=== PATIENT | female | born 1925 | race Caucasian/White ===

== ENCOUNTER 2016-07-13 18:49 | Inpatient (IN) | payer MEDICARE, OTHER ==
[~2016-07-13] VITALS: Ht 160 cm; Wt 70.6 kg
[~2016-07-13 18:49] MED LIST: ASA325 MG PO; BENADRYL-DPS25 MG PO; BIOTENE MOIST44.3 ML PO; CARDIZEM CD240 M1 PO; CATAPRES-DPS0.1 MG PO; COMPAZINE DPS5 MG PO; DULCOLAX-DPS10 MG PR; DUONEB DPS3 ML IH; ELIQUIS2.5 MG PO; FLEET ENEMA133 ML PR; HYDROCODONE 5MG/5 MG PO; KLOR-CON M2020 ME1 PO; LASIX DPS20 MG PO; MAALOX DPS30 ML PO; MILK OF MAGNESI10 ML PO; MOI-STIR120 ML PO; NITROSTAT0.4 MG SL; POLYETHYLENE GL17 GM PO; ROBITUSSIN200 MG/10 PO; SENOKOT S1 TAB PO; SURFAK DPS240 MG PO; TUMS DPS500 MG PO; TYLENOL DPS325 MG PO; VITAMIN D1000 UNI1 PO; ZESTRIL DPS2.5 MG PO
--- NOTE | 2016-07-14 14:17 | CO ---
ADMIT: 07/13/2016 RM/LOC: 305 [facility] MR#: [id number] [address] [address] [place] [address] Consultation SEX: F AGE: 89 : 1925 DATE OF CONSULTATION: 07/14/2016 ATTENDING PHYSICIAN: Prieto George CONSULTING PHYSICIAN: Mary Borden APRN TIME IN: 0910 hours. TIME-OUT: 0945 hours. REASON FOR CONSULTATION: Supportive care consultation was requested by Dr. George for discussion of goals for care. HISTORY OF PRESENT ILLNESS: Rachna is a pleasant 89-year-old, female with history of severe vascular dementia as well as a history of CVA; chronic kidney disease, stage III; PVD; COPD; as well as heart failure. She currently lives at the [facility]. She was admitted on 07/13 due the fact that she was not acting like herself. Evaluation revealed a creatinine of 8.4, and potassium of 5.6 initially. Nephrology is scheduled to see the patient today. She does have a history of significant dysphagia and has followed a modified diet in the past. Speech Therapy is to evaluate her today. Due to her multiple complexities, supportive care consultation was requested to discuss goals for care. In terms of advanced directives, the patient does have a living will as well as healthcare [id number] both of which are on file. The patient's healthcare amdst-er-nggnaewt is her son, Jerel Barrios whose phone# . The patient's secondary healthcare [id number]-lukwunlh is Chester Barrios whose phone# [phone]. Currently, the patient is a do not resuscitate/do not intubate status. Symptomatically, the patient appears intermittently agitated. She is obviously demented. She is weak and debilitated. She does not appear to be in any pain or dyspnea at this time. PAST MEDICAL HISTORY: 1. Vascular dementia. 2. Hypertension. 3. Coronary artery disease. 4. Previous ischemic CVA. 5. Chronic kidney disease, stage III. 6. PVD. 7. COPD. 8. Congestive heart failure. 9. Hyperlipidemia. 10.Osteoarthritis. 11.Bilateral macular degeneration. ALLERGIES: SHE HAS NO KNOWN MEDICATION ALLERGIES. ADMIT: 07/13/2016 RM/LOC: 305 [facility] MR#: [id number] [address] [address] [place] [address] Consultation SEX: F AGE: 89 : 1925 SOCIAL HISTORY: She is from the [facility]. She has children. She does not use alcohol, tobacco, or illicit drugs. FAMILY HISTORY: Unable to obtain from the patient. FUNCTIONAL REVIEW: Prior to her hospital stay, she was living at the [facility]. She was wheelchair-dependent. She was requiring total assistance with ADLs. Her intake was reduced. Her palliative performance scale prior to admission was a 30%. Currently, she remains totally dependent for care. She is taking in minimal intake. She is sleepy. Her current palliative performance score is 20% to 30%. It does appear that she has had significant weight loss over the past few months. In review of our records, we have her weighing around 190 pounds back in February of 2016. Currently, she is weighing around 155 pounds. REVIEW OF SYSTEMS: A 10-point review of systems was attempted. However, due the patient's mentation, this was unable to be obtained. PHYSICAL EXAMINATION: GENERAL: The patient is examined in the bed. She occasionally would yell out. VITAL SIGNS: Temperature 98.2, pulse 82, respirations 18, blood pressure 184/96, oxygen 96% on 2 L per nasal cannula. HEENT: Head is normocephalic. Pupils are 3 mm. Oral mucosa dry with fair dentition. NECK: Supple. RESPIRATORY: Respirations are equal, nonlabored at rest. Lungs are diminished throughout. CARDIOVASCULAR: She is paced. No murmurs, rubs, or gallops. She does have 1+ generalized edema. GASTROINTESTINAL: Soft, nontender. Bowel sounds are positive. MUSCULOSKELETAL: Generalized weakness. No obvious joint deformities. INTEGUMENTARY: Skin turgor is fair. NEUROLOGIC: Disoriented x3. She will not follow commands consistently. PSYCHIATRIC: She is intermittently agitated and yelling out. DIAGNOSTIC DATA: Sodium 145, potassium 5.5, BUN 92, creatinine 8.2, total protein 6.6, albumin 3.3. WBC is 7.5, hemoglobin 10.1, hematocrit 31.7, and platelets are 163. IMPRESSION: 1. Physical debility. 2. Vascular dementia with a FAST score of at least 7A. 3. Fatigue. 4. Malaise. 5. Abnormal weight loss, weighing around 190 pounds in February of 2016, and weighing around 155 pounds now. 6. Acute kidney injury. ADMIT: 07/13/2016 RM/LOC: 305 [facility] MR#: [id number] [address] [place] [id number] [place] [address] Consultation SEX: F AGE: 89 : 1925 7. Chronic kidney disease, stage 3. 8. Hyperkalemia. 9. Heart failure. 10.Chronic obstructive pulmonary disease. 11.Peripheral vascular disease. 12.History of dysphagia with aspiration. 13.Palliative care. 14.The patient is a DNR/DNI. PLAN OF TREATMENT: 1. I was able to call the patient's healthcare rooox-bu-kzukldhi, son, Jerel via telephone. Obviously, the patient is unable to participate in medical decision making due to her dementia. We reviewed the patient's overall status and goals for the time ahead. The patient's son has been able to talk with Dr. George this morning and understands that hospice may be an option for his mother. He is very clear that he would not want to pursue dialysis for his mother. He reports that she has had ongoing decline since the fracture in February of 2016. He states that she has not been eating well, and that she is now wheelchair-dependent, and totally dependent for all ADLs. At this point, he is open to hospice care if Nephrology feels that this is appropriate. We did review the hospice philosophy and benefit in detail and he is agreeable to hospice at the [facility] pending Nephrology's recommendations. He is appreciative of supportive care consultation, agrees to ongoing discussions pending the patient's status. We would like to thank Dr. George for the invitation to participate in this patient's care. Total consultation time was 35 minutes from 0910 hours to 0945 hours with 15 minutes from 0915 hours to 0930 hours spent [id number] with the patient or on the phone with her son discussing goals for care and providing counseling and support. The plan of care was discussed with Dr. Franks as well as nursing. Mary Borden APRN/ mikael JOB #: [id number] CC: Prieto George, Attending Physician Prieto George, Family Physician
--- NOTE | 2016-07-15 10:51 | CO ---
ADMIT: 07/13/2016 RM/LOC: 305 [facility] MR#: [id number] [address] [address] [place] [address] Consultation SEX: F AGE: 89 : 1925 DATE OF CONSULTATION: 07/14/2016 ATTENDING PHYSICIAN: Prieto George CONSULTING PHYSICIAN: Dung Franks MD REASON FOR CONSULTATION: Acute kidney injury and hyperkalemia. HISTORY OF PRESENT ILLNESS: The patient is an 89-year-old female, who presents to the hospital with altered mental status. She has dementia at baseline and is a poor historian. She is unable to give me a clear history. She was admitted to the hospital in March and her creatinine at that time had ranged in the 1.7 to 2.0 range. I visited with her son Mr. Jerel Dickson over the phone and he tells me that she had been progressively declining since her hip surgery. Lately, she has been unable to maintain oral intake and has not been eating or drinking very much. She continues to have memory issues, and when I speak with her, she does not recall the events leading to the hospitalization. She does not know that she is in the hospital. She states that she has been having some nausea. Other than that, no other complaints. REVIEW OF SYSTEMS: Limited secondary to the patient's condition, but otherwise is negative in detail. PAST MEDICAL HISTORY: 1. Hypertension. 2. Coronary artery disease. 3. CVA. 4. CKD, stage 3. 5. COPD. 6. CHF. 7. Pacemaker placement. 8. Hyperlipidemia. 9. Macular degeneration. 10.Pulmonary embolism. SOCIAL HISTORY: Her son, Jerel Dickson is very involved in her care. She has no ongoing tobacco, alcohol, or recreational drug use. FAMILY HISTORY: She is unable to give any history. She is unable to tell me if any of her members have any chronic kidney disease. MEDICATIONS: Reviewed in the chart. ALLERGIES: NO KNOWN DRUG ALLERGIES. PHYSICAL EXAMINATION: VITAL SIGNS: Temperature 98.2 Fahrenheit, pulse 82, blood pressure 184/96. GENERAL: She is in bed and somewhat agitated. HEENT: Head is nontraumatic and normocephalic. Extraocular movements are intact. Extremely dry mucosa. ADMIT: 07/13/2016 RM/LOC: 305 [facility] MR#: [id number] [address] [address] [place] [address] Consultation SEX: F AGE: 89 : 1925 CHEST: Some right basilar crackles. CVS: Regular rhythm. S1 and S2. No rubs, murmurs, or gallops. ABDOMEN: Soft and nontender. EXTREMITIES: No edema. NEUROLOGIC: She is not oriented, but is able to move all her extremities. LABORATORY DATA: Reviewed. BMP with sodium 145, potassium 5.5, CO2 of 23, creatinine 8.2, it was 8.7 earlier this morning, albumin 3.3. Hemoglobin 10.1. Urinalysis with 1+ protein, trace blood, trace leukocyte esterase. Chest x-ray with some cardiomegaly. ASSESSMENT AND PLAN: 1. Acute kidney injury/chronic kidney disease stage 3-this is likely prerenal in etiology. 2. Azotemia secondary to acute kidney injury and volume depletion. 3. Hyperkalemia-in the setting of acute kidney injury. We have medically managed her potassium thus far and her potassium has improved. She is due to receive another dose of Kayexalate today. I discussed her case with her son over the phone. As noted above, she has had a huge decline in her functional status recently and has not been able to maintain her oral intake. I discussed with him that her acute kidney injury may improve somewhat with conservative measures but there is a high chance considering her current functional status that she may end up being volume depleted again. He is in agreement that dialysis is not indicated in her scenario and I completely agree with this. We also discussed hospice measures and he would like to have some more information about this and is open to discussions on this front. Thank you for this consultation. Please do not hesitate to contact with any questions. Dung Franks MD/ mikael JOB #: [id number] CC: Prieto George, Attending Physician Prieto George, Family Physician
[2016-07-16] MEDS ORDERED: DESYREL-DPS50 MG PO (12:56)
[2016-07-16] MEDS ORDERED: MOI-STIR120 ML PO (12:57)
[2016-07-16] MEDS ORDERED: APRESOLINE-DPS10 MG PO (12:58)
[2016-07-16] MEDS ORDERED: LACRI-LUBE3.5 GM OU (13:08)
[2016-07-16] MEDS ORDERED: TEARS NATURAL D15 ML OU (13:08)
[2016-07-16] MEDS ORDERED: ISOPTO ATROPINE15 ML SL (13:09)
[2016-07-16] MEDS ORDERED: MORPHINE2 MG/ML SQ (13:10)
[2016-07-16] MEDS ORDERED: ATIVAN2 MG/1 ML IV (13:11)
[2016-07-16] MEDS ORDERED: ZOFRAN DPS4 MG/2 ML IV (13:12)
--- NOTE | 2016-07-19 09:21 | ER ---
ADMIT: 07/13/2016 RM/LOC: 305 [facility] MR#: [id number] [address] [address] [place] [address] Emergency Room Report SEX: F AGE: 89 : 1925 DATE: 07/13/2016 TIME: 1849 hours. Please refer to my T-sheet for complete H and P. HISTORY OF PRESENT ILLNESS: Briefly, the patient is an 89-year-old, who came in with decreased mental status, confirmed the onset, a [facility] patient. She is DNR. Came in with episodes where they passed out just not acting herself. Very poor historian. I am unable to obtain very good history. PHYSICAL EXAMINATION: VITAL SIGNS: Blood pressure 160/74, pulse 71, respirations 16, temp 99.3, and sat 97% on 5 L. GENERAL: Disoriented to time and place. Slightly agitated, rambling. LUNGS: Clear. HEART: Regular. ABDOMEN: Soft. EMERGENCY DEPARTMENT COURSE: CT of the brain showed no acute changes. Chest x-ray revealed mild CHF. Cardiac enzymes are negative. Blood cultures x2 were sent. Lactate was 0.8. CBC was normal except hemoglobin 10.9. Chemistries normal except potassium 6.4 and creatinine 8.7. Troponin was negative. EKG was paced rhythm, rate 78. We did give the patient placed a David given amp of sodium bicarb, 10 mL of 10% calcium gluconate and amp of D50 and 10 units of insulin. We gave her 500 mL normal saline bolus. We did the whole sepsis protocol. I talked to Dr. George, who will admit her to the hospital. ASSESSMENT: 1. Acute renal failure. 2. Syncopal episode. 3. Dementia. 4. Hyperkalemia. 5. Do not intubate. Critical care time is 75 minutes. PLAN: Admit to Dr. George. Johnson Muhammad MD/ mikael JOB #: [id number] CC: Prieto George MD, Attending Physician Prieto George MD, Family Physician
--- NOTE | 2016-07-22 08:37 | DS ---
ADMIT: 07/13/2016 RM/LOC: 305 [facility] MR#: [id number] [address] [address] [place] [address] Discharge Summary SEX: F AGE: 89 : 1925 ADMISSION DATE: 07/13/2016 DISCHARGE DATE: 07/15/2016 ADMITTING DIAGNOSES: 1. Acute kidney injury superimposed on baseline stage 3 chronic kidney disease. 2. Hyperkalemia. 3. History of congestive heart failure. 4. Hypoxemia. 5. Hypertension. 6. Chronic obstructive pulmonary disease. 7. Advanced dementia. 8. Coronary artery disease. 9. Cerebrovascular disease. 10.Hyperlipidemia. 11.Prior pacemaker placement. 12.History of aspiration pneumonia. 13.Dysphagia. 14.History of bilateral pulmonary emboli March 2016. 15.History of left hip fracture February 2016. DISCHARGE DIAGNOSES: 1. Acute kidney injury superimposed on baseline stage 3 chronic kidney disease. 2. Hyperkalemia. 3. History of congestive heart failure. 4. Hypoxemia. 5. Hypertension. 6. Chronic obstructive pulmonary disease. 7. Advanced dementia. 8. Coronary artery disease. 9. Cerebrovascular disease. 10.Hyperlipidemia. 11.Prior pacemaker placement. 12.History of aspiration pneumonia. 13.Dysphagia. 14.History of bilateral pulmonary emboli March 2016. 15.History of left hip fracture February 2016. PROCEDURES: None. CONSULTATIONS: 1. Dung Franks MD-Nephrology, consulted on 07/14/2016. 2. Supportive Care consult done on 07/14/2016. HISTORY AND PHYSICAL EXAMINATION: Rachna is an 89-year-old, white female, city call patient, who normally resides at the [facility] here in [place]. She was sent to the [facility] Emergency Department late in the evening of 07/13/2016 with some mental status changes. ER workup showed ADMIT: 07/13/2016 RM/LOC: 305 [facility] MR#: [id number] [address] [address] [place] [address] Discharge Summary SEX: F AGE: 89 : 1925 her serum creatinine to be increased all the way up into the 7-8's from her baseline of 1.7-1.9. She was also markedly hyperkalemic with potassiums up in the 6's. She was subsequently admitted to the ICU and placed on telemetry, and efforts made at lowering her serum potassium with insulin, bicarb, glucose, and Kayexalate. HOSPITAL COURSE: The morning following admission, Rachna was evaluated both by myself and Dr. Franks. The thought was that ultimately if we were going to correct her renal problems, she would need to be on dialysis. Conversations were held not only with myself but also from Dr. Franks and with Supportive Care with Rachna's son, Jerel, who is her power of erisa attorney regarding his goals for ongoing care. Jerel notes that Joses functional status and cognition and overall health has generally declined since her hip fracture back in February, and the family does not wish for dialysis or further aggressive measures. It was their desire that she be placed on hospice at this time. As such, Social Work was consulted and [facility] As of the morning of 07/15/2016, the plan is to discharge her back to the [facility] for hospice care and comfort cares. DISCHARGE CONDITION: Poor. DISPOSITION: She will be discharged back to the [facility]. DISCHARGE MEDICATIONS: Please refer to her discharge MAR. Ultimately, her comfort care medications will be determined by her hospice agency that oversees her care at the [facility]. FOLLOWUP: I do not have any plan to follow up with Rachna at this time. Her management will be undertaken by the attending physician at the [facility]. Prieto George MD/ ty JOB #: [id number] CC: Prieto George MD, Attending Physician Prieto George MD, Family Physician
--- NOTE | 2016-07-22 08:37 | HP ---
ADMIT: 07/13/2016 RM/LOC: 305 [facility] MR#: [id number] [address] [address] [place] [address] History and Physical SEX: F AGE: 89 : 1925 DATE OF SERVICE: 07/14/2016 CHIEF COMPLAINT: 1. Mental status change. 2. Acute kidney injury. HISTORY OF PRESENT ILLNESS: Rachna is an 89-year-old, white female, city-call patient, who normally resides at the 's home here in [place] was sent to the [facility] Emergency Department when she was found to have some mental status changes on top of her already advanced dementia. Subsequent workup in the ER revealed her to be hyperkalemic and to have a significant increase in her serum creatinine from a baseline of around 1.[address] up into the 7s. Much of Rachna's past medical history is obtained from old records. There is no reliable historian with her at the time of my exam, and her advanced dementia limits her ability to provide any meaningful history. PAST MEDICAL HISTORY: 1. Remarkable for:. 2. Stage 3 chronic kidney disease with baseline serum creatinine around 1.7 to 1.9. 3. History of congestive heart failure. 4. Hypertension. 5. Chronic obstructive pulmonary disease. 6. Advanced dementia. 7. Coronary artery disease. 8. Cerebrovascular disease with prior ischemic stroke. 9. Hyperlipidemia. 10.Prior pacemaker placement. 11.History of aspiration pneumonitis and pneumonia during hospitalization from late February of 2016 into March of 2016. 12.History of bilateral pulmonary emboli, diagnosed in March of 2016. 13.History of left intertrochanteric hip fracture 02/2016. PAST SURGICAL HISTORY: 1. Prior pacemaker placement. 2. Left hip trochanteric femoral nailing, performed by Dr. Beltran in February of 2016. MEDICATIONS: Her outpatient medications include: 1. Biotene mouthwash. 2. MiraLax daily. 3. Diltiazem ER 240 mg b.i.d. 4. Vitamin D3, 2000 units daily. 5. Eliquis 2.5 mg twice daily. 6. Tylenol. 7. Guaifenesin. 8. DuoNebs. 9. Trazodone 25 at bedtime. ADMIT: 07/13/2016 RM/LOC: 305 [facility] MR#: [id number] [address] [address] [place] [address] History and Physical SEX: F AGE: 89 : 1925 10.Zestril 2.5 mg daily. 11.Dulcolax suppository 10 mg per rectum as needed. ALLERGIES: THERE ARE NO ALLERGIES RECORDED IN THE CHART. SOCIAL HISTORY: She is a nonsmoker and nondrinker. No drug use. Again, she is residing at the 's home here in [place]. She apparently has a son living in [place] who we will be getting in contact with at the end of this dictation to discuss his wishes for her ongoing care. FAMILY HISTORY: Noncontributory. REVIEW OF SYSTEMS: As per HPI. All others were reviewed and were negative. PHYSICAL EXAMINATION: VITAL SIGNS: Current blood pressure is 184/96, pulse 82, respirations 18, temp 98.2, O2 saturation is 96% on 4 L nasal cannula. GENERAL: She is awake, confused. Not oriented to person, place, or time, and unable to provide any meaningful history. HEENT: Normocephalic, atraumatic. HEART: Regular rate and rhythm. No murmurs, gallops, or rubs. LUNGS: Diminished throughout bilaterally with faint expiratory rales bilaterally. ABDOMEN: Obese, soft, nontender, nondistended. No rebound, guarding, or masses. EXTREMITIES: No cyanosis or clubbing. LABORATORY AND X-RAY DATA: CBC on admission shows a white count of 7.8, hemoglobin of 10.9, and platelets of 185. Chest x-ray shows cardiomegaly with mild edema. Head CT negative for any acute intracranial abnormalities. Lactic acid was unremarkable. CMP on ER admission; potassium of 6.4, CO2 of 22, BUN of 100, creatinine of 8.7, phos of 6.6. Cardiac enzymes, CK, CK-MB and troponin were all negative. Lactic acid was 0.8. PT/INR and PTT are within normal limits. UA without clinically significant abnormalities. Procalcitonin was 0.47. Repeat BMP this morning shows a potassium of 5.6, a creatinine of 8.4. CBC this morning is essentially unchanged. Blood cultures are negative to date. Twelve-lead EKG shows sinus rhythm which is essentially paced. No further interpretation can be made. ASSESSMENT: 1. Acute kidney injury, superimposed on a baseline stage 3 chronic kidney disease. 2. Hyperkalemia. 3. History of congestive heart failure. 4. Hypoxemia. 5. Hypertension. 6. Chronic obstructive pulmonary disease. 7. Advanced dementia. 8. Coronary artery disease. ADMIT: 07/13/2016 RM/LOC: 305 [facility] MR#: [id number] [address] [place] [address] [place] [address] History and Physical SEX: F AGE: 89 : 1925 9. Cerebrovascular disease. 10.Hyperlipidemia. 11.Prior pacemaker placement. 12.History of aspiration pneumonia secondary to chronic dysphagia. 13.History of bilateral pulmonary emboli, March 2016. 14.History of left hip fracture, February 2016. PLAN: Rachna will remain in the ICU as long as her potassium is this high. I have asked Dr. Franks with Nephrology to consult. I have stopped her ARTHUR inhibitor. We will repeat Kayexalate again this morning. We will get a chest x-ray, and proBNP this morning. We will wean her oxygen as able. We will start hydralazine for pressures greater than 160 systolic. With her recent history of pulmonary emboli, we will continue her on her Eliquis. Again, I will be having a conversation with her son about his wishes for her ongoing care. I think she would be an excellent supportive care consult patient and as such, I have asked the port care consult. I have also asked for a social work consult. Speech therapy will evaluate her prior to us initiating any oral feeds. I will also going to lock her IV fluids as I am concerned about fluid overloading her at this point. Prieto George MD/ mikael JOB #: [id number] CC: Prieto George, Attending Physician Prieto George, Family Physician
== END 2016-07-15 11:05 | disposition home or self-care (01) | DRG 683 ==
LOC: ER 18:49 → 3ICU 21:00
PROVIDERS: ADMIT Family Medicine
DX: N17.9 Acute kidney failure, unspecified (principal); I13.0 Hypertensive heart and chronic kidney disease with heart failure and stage 1 through stage 4 chronic kidney disease, or unspecified chronic kidney disease; E87.5 Hyperkalemia; I50.9 Heart failure, unspecified; Z51.5 Encounter for palliative care; N18.3 Chronic kidney disease, stage 3 (moderate); J44.9 Chronic obstructive pulmonary disease, unspecified; I25.10 Atherosclerotic heart disease of native coronary artery without angina pectoris; E78.5 Hyperlipidemia, unspecified; R09.02 Hypoxemia; H35.30 Unspecified macular degeneration; I73.9 Peripheral vascular disease, unspecified; M19.90 Unspecified osteoarthritis, unspecified site; F01.50 Vascular dementia, unspecified severity, without behavioral disturbance, psychotic disturbance, mood disturbance, and anxiety; R63.4 Abnormal weight loss; Z66 Do not resuscitate; Z86.73 Personal history of transient ischemic attack (TIA), and cerebral infarction without residual deficits; Z86.711 Personal history of pulmonary embolism; Z95.0 Presence of cardiac pacemaker